=== PATIENT | female | born 1995 | race Caucasian/White ===

== ENCOUNTER 2017-02-14 23:20 | Emergency (ER) | payer MEDICAID ==
[~2017-02-14] VITALS: Ht 157.5 cm; Wt 123.0 kg
[2017-02-14 23:22] VITALS: BP 137/84
[2017-02-14] MEDS ORDERED: SERT100T PO (23:30)
== END 2017-02-15 00:55 | disposition home or self-care (01) ==
LOC: ED 23:59
DX: S83.92XA Sprain of unspecified site of left knee, initial encounter (principal); X50.0XXA Overexertion from strenuous movement or load, initial encounter; Y93.89 Activity, other specified; Y92.89 Other specified places as the place of occurrence of the external cause; Y99.8 Other external cause status
CPT/HCPCS: 29505

== ENCOUNTER 2017-06-02 14:41 | Emergency (ER) | payer MEDICAID ==
[~2017-06-02] VITALS: Ht 157.5 cm; Wt 116.0 kg
[~2017-06-02 14:41] MED LIST: SERT100T PO
[2017-06-02 14:43] VITALS: BP 133/84
== END 2017-06-02 15:16 | disposition home or self-care (01) ==
LOC: ED 15:10
DX: Z32.01 Encounter for pregnancy test, result positive (principal); Z87.891 Personal history of nicotine dependence
CPT/HCPCS: 99281

== ENCOUNTER 2017-06-04 05:19 | Emergency (ER) | payer MEDICAID ==
[~2017-06-04] VITALS: Ht 157.5 cm; Wt 112.7 kg
[2017-06-04] MEDS ORDERED: DIPHENHYDRAMINE 50 MG/ML, 1ML IVPush ONE (06:00)
[2017-06-04] MEDS ORDERED: FAMOTIDINE 20 MG/2 ML IVP ONE (06:00)
[2017-06-04] MEDS ORDERED: SODIUM CHLORIDE FLUSH 10ML SYR IVF ONE (06:00)
[2017-06-04] MEDS ORDERED: SODIUM CHLORIDE 0.9% 1,000ML IVBOLUS ONE (06:00)
[2017-06-04] MEDS ORDERED: METOCLOPRAMIDE 5 MG/ML, 2ML IVPush ONE (06:00)
[2017-06-04] MEDS ORDERED: DIPHENHYDRAMINE 50 MG/ML, 1ML ONE (06:23)
[2017-06-04] MEDS ORDERED: FAMOTIDINE 20 MG/2 ML ONE (06:23)
[2017-06-04] MEDS ORDERED: METOCLOPRAMIDE 5 MG/ML, 2ML ONE (06:23)
[2017-06-04] MEDS ORDERED: ONDANSETRON 2MG/ML, 2ML IVPush ONE (06:30)
[2017-06-04] MEDS ORDERED: ONDANSETRON 2MG/ML, 2ML ONE ×2 (06:31→07:20)
[2017-06-04 06:33] LABS: HEMATOCRIT 43.4 % (34.6-47.8); HEMOGLOBIN 14.6 g/dL (11.7-16.4); WHITE BLOOD COUNT 11.1 x10^3/uL (4.5-13.2)
[2017-06-04 06:43] LABS: ASPARTATE AMINO TRANSFERASE 11 U/L (15-37); BLOOD UREA NITROGEN 8 mg/dL (7-18)
[2017-06-04 08:03] VITALS: BP 118/47
== END 2017-06-04 08:05 | disposition home or self-care (01) ==
LOC: ED 06:30
DX: R11.2 Nausea with vomiting, unspecified (principal); R19.7 Diarrhea, unspecified; Z90.49 Acquired absence of other specified parts of digestive tract
CPT/HCPCS: 36415; 80053; 81001; 83690; 84702; 85025; 87086; 96361; 96374; 96375; 99284; J1200; J2405; J2765; J7030; S0028

== ENCOUNTER 2017-06-05 21:49 | Emergency (ER) | payer MEDICAID ==
[~2017-06-05] VITALS: Ht 157.5 cm; Wt 111.2 kg
[2017-06-05] MEDS ORDERED: ONDANSETRON 2MG/ML, 2ML IVPush ONE (23:00)
[2017-06-05] MEDS ORDERED: FAMOTIDINE 20 MG/2 ML IVP ONE (23:00)
[2017-06-05] MEDS ORDERED: SODIUM CHLORIDE FLUSH 10ML SYR IVF ONE (23:00)
[2017-06-05] MEDS ORDERED: SODIUM CHLORIDE 0.9% 1,000ML IVBOLUS ONE (23:00)
[2017-06-05 23:49] LABS: ASPARTATE AMINO TRANSFERASE 14 U/L (15-37); BLOOD UREA NITROGEN 8 mg/dL (7-18)
[2017-06-05 23:53] LABS: HEMATOCRIT 44.4 % (34.6-47.8); HEMOGLOBIN 14.9 g/dL (11.7-16.4); WHITE BLOOD COUNT 13.8 x10^3/uL (4.5-13.2)
[2017-06-06 01:53] VITALS: BP 137/86
== END 2017-06-06 01:55 | disposition home or self-care (01) ==
LOC: ED 22:52
DX: O26.891 Other specified pregnancy related conditions, first trimester (principal); Z3A.01 Less than 8 weeks gestation of pregnancy; R11.2 Nausea with vomiting, unspecified
CPT/HCPCS: 36415; 76830; 80053; 81003; 83690; 84702; 85025; 96361; 96374; 96375; 99285; J2405; J7030; S0028

== ENCOUNTER 2017-06-09 16:21 | Emergency (ER) | payer MEDICAID ==
[~2017-06-09] VITALS: Ht 157.5 cm; Wt 108.1 kg
[2017-06-09] MEDS ORDERED: FAMOTIDINE 20 MG/2 ML IVP ONE (17:00)
[2017-06-09] MEDS ORDERED: SODIUM CHLORIDE 0.9% 1,000ML IVBOLUS ONE (17:00)
[2017-06-09] MEDS ORDERED: SODIUM CHLORIDE FLUSH 10ML SYR IVF ONE (17:00)
[2017-06-09] MEDS ORDERED: METOCLOPRAMIDE 5 MG/ML, 2ML IVPush ONE (17:00)
[2017-06-09] MEDS ORDERED: METOCLOPRAMIDE 5 MG/ML, 2ML ONE (17:02)
[2017-06-09] MEDS ORDERED: FAMOTIDINE 20 MG/2 ML ONE (17:03)
[2017-06-09 17:21] VITALS: BP 131/84
[2017-06-09 17:24] LABS: HEMATOCRIT 44.7 % (34.6-47.8); HEMOGLOBIN 15.2 g/dL (11.7-16.4); WHITE BLOOD COUNT 11.5 x10^3/uL (4.5-13.2)
[2017-06-09 17:37] LABS: BLOOD UREA NITROGEN 9 mg/dL (7-18)
[2017-06-09] MEDS ORDERED: POTASSIUM CHLORIDE 20 MEQ TAB.ER.PRT ONE (18:07)
[2017-06-09] MEDS ORDERED: POTASSIUM CHLORIDE 20 MEQ TAB.ER.PRT PO ONE (18:30)
== END 2017-06-09 18:41 | disposition home or self-care (01) ==
LOC: ED 17:33
DX: O21.1 Hyperemesis gravidarum with metabolic disturbance (principal); Z3A.08 8 weeks gestation of pregnancy
CPT/HCPCS: 36415; 80048; 82040; 84702; 85025; 96361; 96374; 96375; 99284; J2765; J7030; S0028

== ENCOUNTER 2017-07-01 18:00 | Inpatient (IN) | payer MEDICAID ==
[~2017-07-01] VITALS: Ht 157.5 cm; Wt 106.8 kg
[2017-07-01] MEDS ORDERED: SODIUM CHLORIDE 0.9% 1,000ML IVBOLUS ONE (18:30)
[2017-07-01] MEDS ORDERED: SODIUM CHLORIDE FLUSH 10ML SYR IVF ONE (18:30)
[2017-07-01 18:34] LABS: HEMATOCRIT 49.7 % (34.6-47.8); WHITE BLOOD COUNT 13.4 x10^3/uL (3.4-10)
[2017-07-01 18:41] LABS: BLOOD UREA NITROGEN 14 mg/dL (7-18)
[2017-07-01 18:42] LABS: ASPARTATE AMINO TRANSFERASE 33 U/L (15-37)
[2017-07-01] MEDS ORDERED: ONDANSETRON 2MG/ML, 2ML IVPush ONE (19:00)
[2017-07-01] MEDS ORDERED: POTASSIUM CHLORIDE 40 MEQ in SODIUM CHLORIDE 0.9% 500 ML IV ONE (20:00)
[2017-07-01] MEDS ORDERED: ONDANSETRON 2MG/ML, 2ML ONE (20:14)
[2017-07-01] MEDS ORDERED: CEFTRIAXONE PMX 1GM/50ML 50 ML IV ONE (20:30)
[2017-07-01] MEDS ORDERED: ONDANSETRON 2MG/ML, 2ML IVPush PRN (20:30)
[2017-07-01] MEDS ORDERED: morphine SULFATE 10 MG/ML, 1ML IVPush PRN (20:30)
[2017-07-01] MEDS ORDERED: CEFTRIAXONE PMX 1GM/50ML 50 ML ONE (20:59)
[2017-07-01] MEDS ORDERED: POTASSIUM CHLORIDE 20 MEQ TAB.ER.PRT PO ONE (22:30)
[2017-07-01] MEDS: CEFTRIAXONE PMX 1GM/50ML 50 ML IV SCH (22:57)
[2017-07-01] MEDS: SODIUM CHLORIDE 0.9% 1,000 ML IV SCH (22:57)
[2017-07-02 03:18] VITALS: BP 124/75
[2017-07-02] MEDS: SODIUM CHLORIDE 0.9% 1,000 ML IV SCH (05:56)
[2017-07-02 07:25] VITALS: BP 129/80
[2017-07-02] MEDS: CEFTRIAXONE PMX 1GM/50ML 50 ML IV SCH (08:07)
[2017-07-02 08:24] LABS: HEMATOCRIT 39.5 % (34.6-47.8); HEMOGLOBIN 13.5 g/dL (11.7-16.4); WHITE BLOOD COUNT 8.8 x10^3/uL (3.4-10)
[2017-07-02 08:30] LABS: BLOOD UREA NITROGEN 9 mg/dL (7-18)
[2017-07-02] MEDS ORDERED: CALCIUM CARBONATE 500 MG TAB.CHEW PO PRN (11:30)
[2017-07-02 13:15] VITALS: BP 127/75
[2017-07-02] MEDS ORDERED: ONDA4TAB10 PO (14:20)
== END 2017-07-02 14:47 | disposition home or self-care (01) | DRG 781 ==
LOC: ED 19:23 → EDIP 20:02 → 4WST 21:37 → DCLOUNGE 07-02 14:05
PROVIDERS: ADMIT Family Medicine; ATTEND Internal Medicine
DX: O21.1 Hyperemesis gravidarum with metabolic disturbance (principal); O23.01 Infections of kidney in pregnancy, first trimester; Z68.1 Body mass index [BMI] 19.9 or less, adult; E66.9 Obesity, unspecified; O99.281 Endocrine, nutritional and metabolic diseases complicating pregnancy, first trimester; M54.9 Dorsalgia, unspecified; K59.00 Constipation, unspecified; Z3A.11 11 weeks gestation of pregnancy; Z82.49 Family history of ischemic heart disease and other diseases of the circulatory system; Z83.3 Family history of diabetes mellitus; Z90.49 Acquired absence of other specified parts of digestive tract; Z90.89 Acquired absence of other organs; Z87.440 Personal history of urinary (tract) infections; Z88.6 Allergy status to analgesic agent; Z88.1 Allergy status to other antibiotic agents; Z88.0 Allergy status to penicillin; Z88.8 Allergy status to other drugs, medicaments and biological substances
CPT/HCPCS: 36415; 80048; 80053; 81001; 83690; 83735; 84703; 85025; 87040; 87086; 96361; 96374; 96375; J0696; J2405; J3480; J7030; J7040

== ENCOUNTER 2017-07-18 18:28 | Emergency (ER) | payer MEDICAID ==
[~2017-07-18] VITALS: Ht 157.5 cm; Wt 105.0 kg
[~2017-07-18 18:28] MED LIST changes: +ONDA4TAB10 PO
[2017-07-18] MEDS ORDERED: SODIUM CHLORIDE FLUSH 10ML SYR IVF ONE (19:00)
[2017-07-18] MEDS ORDERED: ONDANSETRON 2MG/ML, 2ML IVPush ONE (19:00)
[2017-07-18] MEDS ORDERED: SODIUM CHLORIDE 0.9% 1,000ML IVBOLUS ONE ×2 (19:00→21:00)
[2017-07-18 19:25] LABS: HEMATOCRIT 40.3 % (34.6-47.8); HEMOGLOBIN 13.8 g/dL (11.7-16.4); WHITE BLOOD COUNT 11.1 x10^3/uL (3.4-10)
[2017-07-18 19:45] LABS: ASPARTATE AMINO TRANSFERASE 16 U/L (15-37); BLOOD UREA NITROGEN 6 mg/dL (7-18)
[2017-07-18 21:50] VITALS: BP 132/84
== END 2017-07-18 22:27 | disposition home or self-care (01) ==
LOC: ED 18:55
DX: O26.891 Other specified pregnancy related conditions, first trimester (principal); O21.9 Vomiting of pregnancy, unspecified; R11.0 Nausea; Z3A.12 12 weeks gestation of pregnancy
CPT/HCPCS: 36415; 80053; 81001; 85025; 87086; 93005; 96361; 96374; 99285; J2405; J7030

== ENCOUNTER 2017-09-12 17:36 | Emergency (ER) | payer MEDICAID ==
[~2017-09-12] VITALS: Ht 157.5 cm; Wt 107.6 kg
[~2017-09-12 17:36] MED LIST changes: -SERT100T PO; +SERT20OR PO
[2017-09-12 18:30] LABS: BASOPHILS # (AUTO) 0.03 x10^3/uL (0-0.1); BASOPHILS % (AUTO) 0 % (0-1); EOSINOPHILS # (AUTO) 0.02 x10^3/uL (0-0.4); EOSINOPHILS % (AUTO) 0 % (1-7); LYMPHOCYTES # (AUTO) 1.62 x10^3/uL (1-3.4); LYMPHOCYTES % (AUTO) 12 % (22-44); MD NO; MEAN CORPUSCULAR HEMOGLOBIN 30.7 pg (27.0-34.8); MEAN CORPUSCULAR HGB CONC 33.9 g/dL (32.4-35.8); MEAN CORPUSCULAR VOLUME 90.6 fL (80-100); MEAN PLATELET VOLUME 7.3 fL (7.4-10.4); MONOCYTES # (AUTO) 0.43 x10^3/uL (0.2-0.8); MONOCYTES % (AUTO) 3 % (2-9); NEUTROPHILS # (AUTO) 11.23 x10^3/uL (1.8-6.8); NEUTROPHILS % (AUTO) 84 % (42-75); PLATELET COUNT 354 x10^3/uL (130-400); RED CELL DISTRIBUTION WIDTH 13.3 % (9.6-15.2)
[2017-09-12] MEDS ORDERED: SODIUM CHLORIDE 0.9% 1,000ML IVBOLUS ONE ×2 (18:30→20:00)
[2017-09-12] MEDS ORDERED: SODIUM CHLORIDE FLUSH 10ML SYR IVF ONE (18:30)
[2017-09-12] MEDS ORDERED: ONDANSETRON 2MG/ML, 2ML IVPush ONE (18:30)
[2017-09-12 18:40] LABS: CULTURE INDICATED? YES; MICROSCOPIC INDICATED
[2017-09-12 18:41] LABS: ALBUMIN 3.4 g/dL (3.4-5.0); ANION GAP 12 mmol/L (5-15); CALCIUM 9.4 mg/dL (8.5-10.1); CHLORIDE 104 mmol/L (98-107)
[2017-09-12 18:44] LABS: ALANINE AMINOTRANSFERASE 17 U/L (12-78); ALKALINE PHOSPHATASE 51 U/L (45-117); BILIRUBIN,TOTAL 0.6 mg/dL (0.2-1.0); CREATININE 0.54 mg/dL (0.55-1.02)
[2017-09-12 20:31] LABS: MICROSCOPIC NOT IND
[2017-09-12 20:40] LABS: CULTURE INDICATED? NO
[2017-09-12 20:45] VITALS: BP 125/59
== END 2017-09-12 21:41 | disposition left against medical advice (07) ==
LOC: ED 18:43
DX: O26.892 Other specified pregnancy related conditions, second trimester (principal); Z3A.21 21 weeks gestation of pregnancy; E86.0 Dehydration; Z90.49 Acquired absence of other specified parts of digestive tract
CPT/HCPCS: 36415; 80053; 81001; 81003; 85025; 87086; 96360; 99284; J7030

== ENCOUNTER 2017-10-01 09:57 | Emergency (ER) | payer MEDICAID ==
[~2017-10-01] VITALS: Ht 158.8 cm; Wt 108.9 kg
[~2017-10-01 09:57] MED LIST changes: +SERT100T PO; -SERT20OR PO
[2017-10-01 11:35] LABS: MICROSCOPIC INDICATED
[2017-10-01] MEDS ORDERED: SODIUM CHLORIDE 0.9% 1,000ML IVBOLUS ONE (12:30)
[2017-10-01] MEDS ORDERED: FAMOTIDINE 20 MG/2 ML IVP ONE (12:30)
[2017-10-01] MEDS ORDERED: ONDANSETRON 2MG/ML, 2ML IVPush ONE (12:30)
[2017-10-01] MEDS ORDERED: SODIUM CHLORIDE FLUSH 10ML SYR IVF ONE (12:30)
[2017-10-01 12:57] LABS: BASOPHILS # (AUTO) 0.02 x10^3/uL (0-0.1); BASOPHILS % (AUTO) 0 % (0-1); EOSINOPHILS # (AUTO) 0.01 x10^3/uL (0-0.4); EOSINOPHILS % (AUTO) 0 % (1-7); LYMPHOCYTES # (AUTO) 1.61 x10^3/uL (1-3.4); LYMPHOCYTES % (AUTO) 15 % (22-44); MD NO; MEAN CORPUSCULAR HEMOGLOBIN 30.5 pg (27.0-34.8); MEAN CORPUSCULAR HGB CONC 33.8 g/dL (32.4-35.8); MEAN CORPUSCULAR VOLUME 90.3 fL (80-100); MEAN PLATELET VOLUME 7.3 fL (7.4-10.4); MONOCYTES # (AUTO) 0.29 x10^3/uL (0.2-0.8); MONOCYTES % (AUTO) 3 % (2-9); NEUTROPHILS # (AUTO) 8.84 x10^3/uL (1.8-6.8); NEUTROPHILS % (AUTO) 82 % (42-75); PLATELET COUNT 323 x10^3/uL (130-400); RED BLOOD COUNT 4.06 x10^6/uL (3.82-5.3)
[2017-10-01 13:09] LABS: ALANINE AMINOTRANSFERASE 9 U/L (12-78); ALBUMIN 3.2 g/dL (3.4-5.0); ANION GAP 11 mmol/L (5-15); CALCIUM 8.9 mg/dL (8.5-10.1); CHLORIDE 105 mmol/L (98-107)
[2017-10-01 13:11] LABS: ALKALINE PHOSPHATASE 50 U/L (45-117); BILIRUBIN,TOTAL 0.3 mg/dL (0.2-1.0); TOTAL PROTEIN 7.5 g/dL (6.4-8.2)
[2017-10-01] MEDS ORDERED: ONDANSETRON 2MG/ML, 2ML ONE (13:18)
[2017-10-01] MEDS ORDERED: FAMOTIDINE 20 MG/2 ML ONE (13:18)
[2017-10-01 13:24] VITALS: BP 126/69
== END 2017-10-01 13:44 | disposition home or self-care (01) ==
LOC: ED 13:15
DX: O26.892 Other specified pregnancy related conditions, second trimester (principal); O99.212 Obesity complicating pregnancy, second trimester; O99.282 Endocrine, nutritional and metabolic diseases complicating pregnancy, second trimester; O99.512 Diseases of the respiratory system complicating pregnancy, second trimester; O99.612 Diseases of the digestive system complicating pregnancy, second trimester; O23.42 Unspecified infection of urinary tract in pregnancy, second trimester; Z3A.21 21 weeks gestation of pregnancy; E86.0 Dehydration; Z90.49 Acquired absence of other specified parts of digestive tract; O21.0 Mild hyperemesis gravidarum
CPT/HCPCS: 36415; 71045; 80053; 81001; 83690; 85025; 96361; 96374; 96375; 99285; J2405; J7030; S0028

== ENCOUNTER 2017-10-28 18:14 | Observation (INO) | payer MEDICAID ==
[~2017-10-28] VITALS: Ht 157.5 cm; Wt 113.6 kg
[2017-10-28 18:28] VITALS: BP 134/74
[2017-10-28] MEDS ORDERED: LACTATED RINGERS 1,000 ML IVBOLUS ONE (19:00)
[2017-10-28] MEDS ORDERED: ONDANSETRON 2MG/ML, 2ML IVPush PRN (19:00)
[2017-10-28] MEDS ORDERED: ONDANSETRON 2MG/ML, 2ML ONE (19:27)
[2017-10-28 19:58] LABS: MICROSCOPIC INDICATED
[2017-10-28 20:06] LABS: AMPHETAMINE SCREEN, URINE Negative (Negative); BARBITURATE SCREEN, URINE Negative (Negative); BENZODIAZEPINE SCREEN, URINE Negative (Negative); CANNABINOID SCREEN, URINE Positive (Negative); COCAINE SCREEN, URINE Negative (Negative); METHADONE SCREEN, URINE Negative (Negative); OPIATE SCREEN, URINE Negative (Negative)
[2017-10-28] MEDS ORDERED: PREN1TAB60 PO (21:15)
[2017-10-28] MEDS ORDERED: FAMOTIDINE 20 MG/2 ML ONE (21:20)
[2017-10-28] MEDS ORDERED: FAMOTIDINE 20 MG/2 ML IVPush ONE (21:30)
== END 2017-10-28 21:45 | disposition home or self-care (01) ==
LOC: LDOP 18:14 → LDIP 18:54
PROVIDERS: ADMIT Obstetrics & Gynecology Female Pelvic Medicine and Reconstructive Surgery; ATTEND Obstetrics & Gynecology Female Pelvic Medicine and Reconstructive Surgery
DX: O21.9 Vomiting of pregnancy, unspecified (principal); Z3A.00 Weeks of gestation of pregnancy not specified
CPT/HCPCS: 59025; 80307; 81001; 87086; 96374; 96375; G0378; J2405; J7120; S0028

== ENCOUNTER 2018-02-12 16:14 | Emergency (ER) | payer MEDICAID ==
[~2018-02-12] VITALS: Ht 160 cm; Wt 113.6 kg
[~2018-02-12 16:14] MED LIST changes: +PREN1TAB60 PO
[2018-02-12 17:26] LABS: BASOPHILS # (AUTO) 0.03 x10^3/uL (0-0.1); BASOPHILS % (AUTO) 0 % (0-1); EOSINOPHILS # (AUTO) 0.49 x10^3/uL (0-0.4); EOSINOPHILS % (AUTO) 7 % (1-7); LYMPHOCYTES # (AUTO) 1.62 x10^3/uL (1-3.4); LYMPHOCYTES % (AUTO) 23 % (22-44); MD NO; MEAN CORPUSCULAR HEMOGLOBIN 28.8 pg (27.0-34.8); MEAN CORPUSCULAR VOLUME 87.5 fL (80-100); MEAN PLATELET VOLUME 7.1 fL (7.4-10.4); MONOCYTES # (AUTO) 0.27 x10^3/uL (0.2-0.8); MONOCYTES % (AUTO) 4 % (2-9); NEUTROPHILS # (AUTO) 4.76 x10^3/uL (1.8-6.8); NEUTROPHILS % (AUTO) 67 % (42-75); PLATELET COUNT 374 x10^3/uL (130-400); RED BLOOD COUNT 3.72 x10^6/uL (3.82-5.3); RED CELL DISTRIBUTION WIDTH 13.9 % (9.6-15.2)
[2018-02-12 17:39] LABS: ALANINE AMINOTRANSFERASE 19 U/L (12-78); ALBUMIN 2.9 g/dL (3.4-5.0); ANION GAP 6 mmol/L (5-15); CALCIUM 8.9 mg/dL (8.5-10.1); CHLORIDE 111 mmol/L (98-107); CREATININE 0.75 mg/dL (0.55-1.02)
[2018-02-12 17:43] LABS: ALKALINE PHOSPHATASE 50 U/L (45-117); BILIRUBIN,TOTAL 0.2 mg/dL (0.2-1.0); TOTAL PROTEIN 6.7 g/dL (6.4-8.2)
[2018-02-12] MEDS ORDERED: SODIUM CHLORIDE FLUSH 10ML SYR IVF ONE (18:30)
[2018-02-12 18:46] LABS: CULTURE INDICATED? YES; MICROSCOPIC INDICATED
[2018-02-12 19:26] VITALS: BP 143/84
== END 2018-02-12 19:29 | disposition home or self-care (01) ==
LOC: ED 18:25
DX: L24.9 Irritant contact dermatitis, unspecified cause (principal); N30.00 Acute cystitis without hematuria; R60.0 Localized edema; F17.200 Nicotine dependence, unspecified, uncomplicated
CPT/HCPCS: 36415; 80053; 81001; 83880; 85025; 87086; 93970; 99285

== ENCOUNTER 2018-06-12 16:36 | Emergency (ER) | payer MEDICAID ==
[~2018-06-12] VITALS: Ht 165.1 cm; Wt 111.0 kg
[2018-06-12 17:41] LABS: CULTURE INDICATED? NO; MICROSCOPIC NOT IND
[2018-06-12 17:43] LABS: BASOPHILS # (AUTO) 0.04 x10^3/uL (0-0.1); BASOPHILS % (AUTO) 1 % (0-1); EOSINOPHILS # (AUTO) 0.64 x10^3/uL (0-0.4); EOSINOPHILS % (AUTO) 8 % (1-7); LYMPHOCYTES # (AUTO) 2.35 x10^3/uL (1-3.4); LYMPHOCYTES % (AUTO) 29 % (22-44); MD NO; MEAN CORPUSCULAR HEMOGLOBIN 28.8 pg (27.0-34.8); MEAN CORPUSCULAR VOLUME 87.2 fL (80-100); MEAN PLATELET VOLUME 7.9 fL (7.4-10.4); MONOCYTES # (AUTO) 0.32 x10^3/uL (0.2-0.8); MONOCYTES % (AUTO) 4 % (2-9); NEUTROPHILS % (AUTO) 59 % (42-75); PLATELET COUNT 291 x10^3/uL (130-400); RED BLOOD COUNT 4.72 x10^6/uL (3.82-5.3); RED CELL DISTRIBUTION WIDTH 14.2 % (9.6-15.2)
[2018-06-12 17:55] LABS: ALBUMIN 3.8 g/dL (3.4-5.0); ANION GAP 8 mmol/L (5-15); CALCIUM 8.9 mg/dL (8.5-10.1); CHLORIDE 107 mmol/L (98-107); CREATININE 0.61 mg/dL (0.55-1.02)
[2018-06-12] MEDS ORDERED: MORPHINE SULFATE 4 MG/ML, 1ML IVPush PRN (18:30)
[2018-06-12] MEDS ORDERED: MORPHINE SULFATE 4 MG/ML, 1ML ONE (18:37)
[2018-06-12] MEDS ORDERED: OMNIPAQUE 350 MG/ML, 100ML BOTTLE ONE (18:38)
[2018-06-12 19:12] VITALS: BP 120/64
== END 2018-06-12 19:31 | disposition home or self-care (01) ==
LOC: ED 19:05
DX: R10.31 Right lower quadrant pain (principal); R10.2 Pelvic and perineal pain; Z90.89 Acquired absence of other organs; Z90.49 Acquired absence of other specified parts of digestive tract; F17.200 Nicotine dependence, unspecified, uncomplicated
CPT/HCPCS: 36415; 74177; 76830; 80048; 81003; 82040; 84703; 85025; 96374; 99285; Q9967

== ENCOUNTER 2018-07-29 19:07 | Emergency (ER) | payer SELFPAY ==
[~2018-07-29] VITALS: Ht 160 cm; Wt 110.0 kg
[2018-07-29 19:09] VITALS: BP 125/83
[2018-07-29 19:36] LABS: BASOPHILS # (AUTO) 0.03 x10^3/uL (0-0.1); BASOPHILS % (AUTO) 0 % (0-1); EOSINOPHILS # (AUTO) 0.53 x10^3/uL (0-0.4); EOSINOPHILS % (AUTO) 5 % (1-7); LYMPHOCYTES # (AUTO) 2.79 x10^3/uL (1-3.4); LYMPHOCYTES % (AUTO) 29 % (22-44); MD NO; MEAN CORPUSCULAR HEMOGLOBIN 29.4 pg (27.0-34.8); MEAN CORPUSCULAR HGB CONC 33.2 g/dL (32.4-35.8); MEAN CORPUSCULAR VOLUME 88.6 fL (80-100); MEAN PLATELET VOLUME 7.7 fL (7.4-10.4); MONOCYTES # (AUTO) 0.39 x10^3/uL (0.2-0.8); MONOCYTES % (AUTO) 4 % (2-9); NEUTROPHILS # (AUTO) 6.02 x10^3/uL (1.8-6.8); NEUTROPHILS % (AUTO) 62 % (42-75); PLATELET COUNT 298 x10^3/uL (130-400); RED BLOOD COUNT 4.37 x10^6/uL (3.82-5.3); RED CELL DISTRIBUTION WIDTH 14.8 % (9.6-15.2)
[2018-07-29 19:49] LABS: ALANINE AMINOTRANSFERASE 25 U/L (12-78); ALBUMIN 3.7 g/dL (3.4-5.0); ANION GAP 9 mmol/L (5-15); CALCIUM 8.4 mg/dL (8.5-10.1); CHLORIDE 110 mmol/L (98-107); CREATININE 0.55 mg/dL (0.55-1.02)
[2018-07-29 19:53] LABS: ALKALINE PHOSPHATASE 47 U/L (45-117); BILIRUBIN,TOTAL 0.2 mg/dL (0.2-1.0); TOTAL PROTEIN 7.4 g/dL (6.4-8.2)
[2018-07-29 20:08] LABS: MICROSCOPIC AUTO
[2018-07-29 20:09] LABS: CULTURE INDICATED? YES
== END 2018-07-29 20:52 | disposition home or self-care (01) ==
LOC: ED 20:50
DX: R10.2 Pelvic and perineal pain (principal); F17.210 Nicotine dependence, cigarettes, uncomplicated
CPT/HCPCS: 36415; 80053; 81001; 84703; 85025; 87086; 99283

== ENCOUNTER 2018-08-28 09:15 | Emergency (ER) | payer MEDICAID ==
[~2018-08-28] VITALS: Ht 160 cm; Wt 106.0 kg
--- NOTE | 2018-08-28 09:32 | NUR ---
PT TO ROOM FROM LOBBY.
--- NOTE | 2018-08-28 09:32 | NUR ---
23 Y/O FEMALE PRESENTS TO ED WITH C/O N/V. "I AM 6 WEEKS AND STARTING AT 0100 THIS MORNING I'VE BEEN THROWING UP. WITH MY LAST , I WAS IN HERE ALL THE TIME BECAUSE I WAS DEHYDRATED AND COULDN'T KEEP ANY OF MY LEVELS UP. I HAVE AN APPT ON THE . I JUST WANT TO MAKE SURE MY LEVELS ARE FINE AND I'M NOT DEHYDRATED." NO C/O D, TRAUMA, SOB, CP, SYNCOPE. PT PLACED ON CONT PULSE OX,NIBP. FRIEND BEDSIDE.
--- NOTE | 2018-08-28 09:40 | NUR ---
PT AMBULATORY TO BATHROOM WITH STEADY GAIT.
--- NOTE | 2018-08-28 09:52 | NUR ---
BEDSIDE REPORT TO JAMES KC
[2018-08-28] MEDS ORDERED: ONDANSETRON 2MG/ML, 2ML ONE (10:15)
[2018-08-28 10:34] LABS: ANION GAP 9 mmol/L (5-15); CALCIUM 9.6 mg/dL (8.5-10.1); CHLORIDE 107 mmol/L (98-107)
[2018-08-28 10:38] LABS: ALANINE AMINOTRANSFERASE 21 U/L (12-78); ALKALINE PHOSPHATASE 52 U/L (45-117); BILIRUBIN,TOTAL 0.5 mg/dL (0.2-1.0); CREATININE 0.51 mg/dL (0.55-1.02)
[2018-08-28] MEDS ORDERED: SODIUM CHLORIDE FLUSH 10ML SYR IVF ONE (11:00)
[2018-08-28] MEDS ORDERED: ONDANSETRON 2MG/ML, 2ML IVPush ONE (11:00)
[2018-08-28] MEDS ORDERED: SODIUM CHLORIDE 0.9% 1,000ML IVBOLUS ONE (11:00)
[2018-08-28 11:02] VITALS: BP 111/58
--- NOTE | 2018-08-28 11:02 | NUR ---
Reports resolution of symptoms.
--- NOTE | 2018-08-28 11:11 | NUR ---
Patient/Caregiver given discharge instructions and they have confirmed that they understand the instructions. Patient ambulatory with steady gait.
== END 2018-08-28 11:13 | disposition home or self-care (01) ==
LOC: ED 10:05
DX: O21.1 Hyperemesis gravidarum with metabolic disturbance (principal); E86.9 Volume depletion, unspecified; Z3A.01 Less than 8 weeks gestation of pregnancy; Z90.49 Acquired absence of other specified parts of digestive tract; Z90.89 Acquired absence of other organs; Z87.19 Personal history of other diseases of the digestive system
CPT/HCPCS: 36415; 80053; 96374; 99283; J2405; J7030; 96372

== ENCOUNTER 2018-08-31 12:33 | Emergency (ER) | payer MEDICAID ==
[~2018-08-31] VITALS: Ht 160 cm; Wt 107.2 kg
[2018-08-31 12:55] VITALS: BP 103/65
== END 2018-08-31 15:22 | disposition home or self-care (01) ==
LOC: ED 13:13
DX: S90.31XA Contusion of right foot, initial encounter (principal); W01.0XXA Fall on same level from slipping, tripping and stumbling without subsequent striking against object, initial encounter; Y93.89 Activity, other specified; Y92.410 Unspecified street and highway as the place of occurrence of the external cause; Y99.8 Other external cause status
CPT/HCPCS: 29515; 99283

== ENCOUNTER 2018-11-07 07:40 | Emergency (ER) | payer MEDICAID ==
[~2018-11-07] VITALS: Ht 160 cm; Wt 98.1 kg
[~2018-11-07 07:40] MED LIST changes: +METO10TA82 PO; +ONDA4TAB7 PO
[2018-11-07 08:20] LABS: BASOPHILS # (AUTO) 0.02 x10^3/uL (0-0.1); BASOPHILS % (AUTO) 0 % (0-1); EOSINOPHILS # (AUTO) 0.04 x10^3/uL (0-0.4); EOSINOPHILS % (AUTO) 0 % (1-7); LYMPHOCYTES # (AUTO) 1.11 x10^3/uL (1-3.4); LYMPHOCYTES % (AUTO) 9 % (22-44); MD NO; MEAN CORPUSCULAR HEMOGLOBIN 29.4 pg (27.0-34.8); MEAN CORPUSCULAR HGB CONC 33.1 g/dL (32.4-35.8); MEAN CORPUSCULAR VOLUME 88.6 fL (80-100); MEAN PLATELET VOLUME 7.9 fL (7.4-10.4); MONOCYTES # (AUTO) 0.23 x10^3/uL (0.2-0.8); MONOCYTES % (AUTO) 2 % (2-9); NEUTROPHILS # (AUTO) 10.89 x10^3/uL (1.8-6.8); NEUTROPHILS % (AUTO) 89 % (42-75); PLATELET COUNT 279 x10^3/uL (130-400)
[2018-11-07 08:27] LABS: ALBUMIN 3.8 g/dL (3.4-5.0); ANION GAP 8 mmol/L (5-15); CALCIUM 9.8 mg/dL (8.5-10.1); CHLORIDE 104 mmol/L (98-107); CREATININE 0.52 mg/dL (0.55-1.02)
[2018-11-07 08:33] LABS: MICROSCOPIC INDICATED
[2018-11-07 08:34] LABS: CULTURE INDICATED? YES
[2018-11-07] MEDS ORDERED: ONDANSETRON ODT 4 MG PO ONE (09:00)
[2018-11-07] MEDS ORDERED: ONDANSETRON 2MG/ML, 2ML IVPush ONE (10:00)
[2018-11-07] MEDS ORDERED: SODIUM CHLORIDE FLUSH 10ML SYR IVF ONE (10:00)
[2018-11-07] MEDS ORDERED: SODIUM CHLORIDE 0.9% 1,000ML IVBOLUS ONE (10:00)
--- NOTE | 2018-11-07 10:08 | NUR ---
pt to ed for n/v x1 week. 16/5 weeks . denies vb. connected to monitors. vss. awaiting edmd assessment.
[2018-11-07] MEDS ORDERED: ONDANSETRON 2MG/ML, 2ML ONE (10:29)
[2018-11-07 10:39] LABS: ALBUMIN 3.8 g/dL (3.4-5.0); BILIRUBIN, DIRECT 0.1 mg/dL (0.1-0.2)
[2018-11-07 10:41] LABS: BILIRUBIN,INDIRECT 0.2 mg/dL (0.0-2.0); BILIRUBIN,TOTAL 0.3 mg/dL (0.2-1.0); TOTAL PROTEIN 8.4 g/dL (6.4-8.2)
--- NOTE | 2018-11-07 10:41 | NUR ---
iv established. pt medicated per mar. no n/v at this time. awaiting lab results.
[2018-11-07 10:56] VITALS: BP 101/59
[2018-11-07] MEDS ORDERED: ALUMINUM/MAG/SIMETHICONE 30 ML UDC PO ONE (11:30)
[2018-11-07] MEDS ORDERED: ALUMINUM/MAG/SIMETHICONE 30 ML UDC ONE (11:32)
== END 2018-11-07 12:05 | disposition home or self-care (01) ==
LOC: ED 10:13
DX: O21.1 Hyperemesis gravidarum with metabolic disturbance (principal); Z3A.21 21 weeks gestation of pregnancy; E86.9 Volume depletion, unspecified; Z88.1 Allergy status to other antibiotic agents; Z88.6 Allergy status to analgesic agent; Z88.8 Allergy status to other drugs, medicaments and biological substances; Z88.5 Allergy status to narcotic agent
CPT/HCPCS: 36415; 76801; 80048; 80076; 81001; 82040; 84702; 85025; 87086; 96361; 96374; 99284; J2405; J7030

== ENCOUNTER 2018-11-09 07:41 | Emergency (ER) | payer MEDICAID ==
[~2018-11-09] VITALS: Ht 160 cm; Wt 98.0 kg
[2018-11-09] MEDS ORDERED: SODIUM CHLORIDE 0.9% 1,000ML IVBOLUS ONE (08:30)
[2018-11-09] MEDS ORDERED: FAMOTIDINE 20 MG/2 ML IVP ONE (08:30)
[2018-11-09] MEDS ORDERED: PROMETHAZINE 25 MG/ML, 1ML IM ONE (08:30)
[2018-11-09] MEDS ORDERED: SODIUM CHLORIDE FLUSH 10ML SYR IVF ONE (08:30)
[2018-11-09 08:33] LABS: ALBUMIN 3.6 g/dL (3.4-5.0); ANION GAP 10 mmol/L (5-15); BASOPHILS # (AUTO) 0.03 x10^3/uL (0-0.1); BASOPHILS % (AUTO) 0 % (0-1); CALCIUM 9.2 mg/dL (8.5-10.1); CHLORIDE 107 mmol/L (98-107); CREATININE 0.39 mg/dL (0.55-1.02); EOSINOPHILS # (AUTO) 0.01 x10^3/uL (0-0.4); EOSINOPHILS % (AUTO) 0 % (1-7); LYMPHOCYTES # (AUTO) 1.26 x10^3/uL (1-3.4); LYMPHOCYTES % (AUTO) 13 % (22-44); MD NO; MEAN CORPUSCULAR HEMOGLOBIN 29.9 pg (27.0-34.8); MEAN CORPUSCULAR HGB CONC 33.6 g/dL (32.4-35.8); MEAN CORPUSCULAR VOLUME 88.9 fL (80-100); MEAN PLATELET VOLUME 7.9 fL (7.4-10.4); MONOCYTES # (AUTO) 0.23 x10^3/uL (0.2-0.8); MONOCYTES % (AUTO) 3 % (2-9); NEUTROPHILS # (AUTO) 7.87 x10^3/uL (1.8-6.8); NEUTROPHILS % (AUTO) 84 % (42-75); PLATELET COUNT 260 x10^3/uL (130-400); RED BLOOD COUNT 4.49 x10^6/uL (3.82-5.3); RED CELL DISTRIBUTION WIDTH 13.8 % (9.6-15.2)
--- NOTE | 2018-11-09 08:47 | NUR ---
REpresents for continued n/v/d x 3 days refractory to zofran. 17 weeks . hr 103. Afebrile. Denies abd cramping or vaginal bleeds.
[2018-11-09] MEDS ORDERED: PROMETHAZINE 25 MG/ML, 1ML ONE (09:02)
[2018-11-09] MEDS ORDERED: FAMOTIDINE 20 MG/2 ML ONE (09:02)
[2018-11-09] MEDS ORDERED: PREN-4 PO (09:19)
--- NOTE | 2018-11-09 09:24 | NUR ---
HR NOW 70 (PRIOR TO IVF/MEDICATIONS), REMAINS AFEBRILE. FLUIDS/MEDUICATIONS ADMINISTERED. UA SENT. UPDATED ON ESTIMATED POC. IN BED W/ CALL KEYES IN HAND/SIDE RAILS UP.
[2018-11-09 09:52] LABS: MICROSCOPIC INDICATED
[2018-11-09 09:53] LABS: CULTURE INDICATED? YES
--- NOTE | 2018-11-09 10:15 | NUR ---
REPORTS NAUSEA IMPROVED TO 2/10 AFTER PHENERGAN/FLUIDS. ABLE TO TOLERATE SALTINES/WATER.
[2018-11-09 10:54] VITALS: BP 140/73
== END 2018-11-09 11:00 | disposition home or self-care (01) ==
LOC: ED 09:10
DX: O21.1 Hyperemesis gravidarum with metabolic disturbance (principal); O23.12 Infections of bladder in pregnancy, second trimester; E86.9 Volume depletion, unspecified; R19.7 Diarrhea, unspecified; Z3A.21 21 weeks gestation of pregnancy
CPT/HCPCS: 36415; 80048; 81001; 82040; 85025; 87086; 96361; 96372; 96374; 99283; J2550; J3490; J7030

== ENCOUNTER 2018-11-17 22:09 | Emergency (ER) | payer MEDICAID ==
[~2018-11-17 22:09] MED LIST changes: +PREN-4 PO
[2018-11-17 22:13] VITALS: BP 113/75
== END 2018-11-17 22:46 | disposition left against medical advice (07) ==
LOC: ED 22:40
DX: O26.892 Other specified pregnancy related conditions, second trimester (principal); R10.9 Unspecified abdominal pain; Z3A.18 18 weeks gestation of pregnancy; Z53.21 Procedure and treatment not carried out due to patient leaving prior to being seen by health care provider

== ENCOUNTER 2018-11-21 09:32 | Emergency (ER) | payer MEDICAID ==
[~2018-11-21] VITALS: Ht 160 cm; Wt 98.5 kg
--- NOTE | 2018-11-21 09:39 | NUR ---
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 STATES PT IS ABOUT 18 WKS 2 DAYS BASED ON LMP AND PT RECENT US. NO NEED TO GO UPSTAIRS. OKAY TO STAY IN ED.
[2018-11-21 10:02] VITALS: BP 109/62
--- NOTE | 2018-11-21 10:11 | NUR ---
HEART TONES ASSESSED WITH THE HANDHELD OB DOPPLER AND FOUND TO BE AT [address] LAI NOTIFIED.
--- NOTE | 2018-11-21 10:12 | NUR ---
URINE COLLECTED AND WALKED TO LAB.
[2018-11-21 10:26] LABS: CULTURE INDICATED? YES; MICROSCOPIC INDICATED
[2018-11-21 10:37] LABS: BASOPHILS # (AUTO) 0.04 x10^3/uL (0-0.1); BASOPHILS % (AUTO) 0 % (0-1); EOSINOPHILS # (AUTO) 0.09 x10^3/uL (0-0.4); EOSINOPHILS % (AUTO) 1 % (1-7); LYMPHOCYTES # (AUTO) 1.45 x10^3/uL (1-3.4); LYMPHOCYTES % (AUTO) 16 % (22-44); MD NO; MEAN CORPUSCULAR HGB CONC 33.7 g/dL (32.4-35.8); MEAN PLATELET VOLUME 7.8 fL (7.4-10.4); MONOCYTES # (AUTO) 0.35 x10^3/uL (0.2-0.8); MONOCYTES % (AUTO) 4 % (2-9); NEUTROPHILS # (AUTO) 7.46 x10^3/uL (1.8-6.8); NEUTROPHILS % (AUTO) 80 % (42-75); PLATELET COUNT 271 x10^3/uL (130-400); RED BLOOD COUNT 4.35 x10^6/uL (3.82-5.3); RED CELL DISTRIBUTION WIDTH 14.2 % (9.6-15.2)
[2018-11-21 10:43] LABS: ALBUMIN 3.3 g/dL (3.4-5.0); ANION GAP 12 mmol/L (5-15); CALCIUM 9.2 mg/dL (8.5-10.1); CHLORIDE 104 mmol/L (98-107)
[2018-11-21 10:47] LABS: ALANINE AMINOTRANSFERASE 13 U/L (12-78); ALKALINE PHOSPHATASE 44 U/L (45-117); BILIRUBIN,TOTAL 0.4 mg/dL (0.2-1.0); CREATININE 0.33 mg/dL (0.55-1.02); TOTAL PROTEIN 7.5 g/dL (6.4-8.2)
--- NOTE | 2018-11-21 11:15 | NUR ---
US at bedside.
[2018-11-21] MEDS ORDERED: CEFTRIAXONE PMX 1GM/50ML 50 ML ONE (11:51)
[2018-11-21] MEDS ORDERED: CEFTRIAXONE PMX 1GM/50ML 50 ML IVPB ONE (12:00)
== END 2018-11-21 12:55 | disposition home or self-care (01) ==
LOC: ED 12:20
DX: O23.12 Infections of bladder in pregnancy, second trimester (principal); Z3A.18 18 weeks gestation of pregnancy; R10.84 Generalized abdominal pain; Z90.49 Acquired absence of other specified parts of digestive tract; Z72.9 Problem related to lifestyle, unspecified
CPT/HCPCS: 36415; 76815; 80053; 81001; 85025; 87086; 96365; 99284; J0696

== ENCOUNTER 2019-11-23 20:38 | Emergency (ER) | payer MEDICAID, OTHER ==
[~2019-11-23] VITALS: Ht 162.6 cm; Wt 105.0 kg
--- NOTE | 2019-11-23 20:59 | NUR ---
PT C/O ALLERGIC REACTION TO ANCHOVY PASTE SHE WAS USING. HIVES TO BILAT ARMS. ITCHINESS TO "MY WHOLE BODY". REPORTS ALLERGY TO BENADRYL. USED TOPICAL CORTISONE AT 2000 TONIGHT. NO RESP DISTRESS, SPEECH CLEAR, CHEEKS FLUSHED. DENIES LIGHTHEADEDNESS, DIZZINESS.
[2019-11-23 21:08] VITALS: BP 100/51
[2019-11-23] MEDS ORDERED: DEXAMETHASONE 4 MG TABLET PO ONE (21:30)
[2019-11-23] MEDS ORDERED: DEXAMETHASONE 4 MG TABLET ONE (21:40)
--- NOTE | 2019-11-23 22:34 | NUR ---
PT FULLY DRESSED, SITTING ON END OF RGRAMPIAN, AWAITING DC.
== END 2019-11-23 22:43 | disposition home or self-care (01) ==
LOC: ED 20:45
DX: R21 Rash and other nonspecific skin eruption (principal); T78.1XXA Other adverse food reactions, not elsewhere classified, initial encounter; Z90.49 Acquired absence of other specified parts of digestive tract; Z90.89 Acquired absence of other organs
CPT/HCPCS: 99283; Q0177